=== PATIENT | female | born 2000 | race Hispanic/Latino ===

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

== ENCOUNTER 2023-03-07 23:39 | Emergency (ER) | payer MEDICAID ==
[~2023-03-07] VITALS: Ht 160 cm; Wt 72.6 kg
[~2023-03-07 23:39] MED LIST: AZIT500T2 PO; GUAFACSF5L PO
[2023-03-08 02:20] LABS: BASOPHILS % (AUTO) 0.4 % (0.0-5.0); EOSINOPHILS % (AUTO) 0.2 % (0.0-8.0); HEMATOCRIT 40.2 % (36-48); LYMPHOCYTES % (AUTO) 23.4 % (21.0-51.0); MEAN CORPUSCULAR HEMOGLOBIN 30.3 pg (27.0-33.0); MEAN CORPUSCULAR HGB CONC 33.6 g/dL (32.0-36.0); MEAN CORPUSCULAR VOLUME 90.1 fL (80-100); MONOCYTES % (AUTO) 5.9 % (3.0-13.0); NEUTROPHILS % (AUTO) 69.8 % (40.0-77.0); PLATELET COUNT (AUTO) 290 K/uL (130-400); RED BLOOD CELL COUNT(AUTO) 4.46 MIL/uL (4.00-5.50); RED CELL DISTRIBUTION WIDTH 12.2 % (11.0-15.5); WHITE BLOOD COUNT (AUTO) 10.2 K/uL (4.8-10.8)
[2023-03-08 02:30] LABS: CREATININE 0.7 mg/dL (0.5-1.5); POTASSIUM 4.1 mmol/L (3.5-5.1)
[2023-03-08] MEDS ORDERED: ONDANSETRON 4MG INJ IVP ONE (02:30)
[2023-03-08] MEDS ORDERED: 0.9%NACL 1000ML 1,000 ML IV ONE (02:30)
[2023-03-08 02:32] LABS: HCG,QUALITATIVE URINE NEGATIVE (NEGATIVE)
[2023-03-08 02:34] LABS: ALBUMIN 3.9 g/dL (3.5-5.0); TOTAL PROTEIN, SERUM 7.9 g/dL (6.0-8.3)
[2023-03-08 02:38] LABS: APPEARANCE,URINE CLOUDY (CLEAR); BILIRUBIN,URINE NEGATIVE (NEGATIVE); COLOR,URINE YELLOW (YELLOW); GLUCOSE, URINE (UA) NEGATIVE (NEGATIVE); KETONES,URINE 10 mg/dL (NEGATIVE); NITRATE,URINE NEGATIVE (NEGATIVE); OCCULT BLOOD,URINE NEGATIVE (NEGATIVE); PH,URINE 6.5 (5.0-8.0); PROTEIN,URINE 30 mg/dL (NEGATIVE)
[2023-03-08 02:39] LABS: LEUKOCYTE ESTERASE ,URINE 250 Leu/uL (NEGATIVE)
[2023-03-08 03:03] LABS: BACTERIA,URINE Rare /HPF (None Seen)
[2023-03-08 03:04] LABS: MUCUS,URINE Many LPF (None Seen)
[2023-03-08 03:11] VITALS: BP 119/60
[2023-03-08] MEDS ORDERED: PHEN-847 PO (03:46)
[2023-03-08] MEDS ORDERED: CEFU500T67 PO (03:46)
[2023-03-08] MEDS ORDERED: ONDA-104 PO (03:47)
[2023-03-08] MEDS ORDERED: ACETAMINOPHEN 325 MG TAB PO ONE (04:00)
[2023-03-08] MEDS ORDERED: CEFTRIAXONE 1G VIAL IVPB ONE (04:00)
== END 2023-03-08 04:11 | disposition home or self-care (01) ==
LOC: EDH 23:39
DX: N39.0 Urinary tract infection, site not specified (principal)
CPT/HCPCS: 99284; 80053; 83690; 85025; 87088; 81001; 81025; 36415; 96374; 96361; 96375; J0696; J2405

== ENCOUNTER 2023-03-17 01:01 | Emergency (ER) | payer MEDICAID ==
[~2023-03-17] VITALS: Ht 160 cm; Wt 73.0 kg
[~2023-03-17 01:01] MED LIST changes: +CEFU500T67 PO; +ONDA-104 PO; +PHEN-847 PO
[2023-03-17] MEDS ORDERED: GABAPENTIN 300 MG CAPSULE PO SCH (02:00)
[2023-03-17] MEDS ORDERED: MORPHINE 4 MG SYG IM ONE (02:00)
[2023-03-17] MEDS ORDERED: CYCLOBENZAPRINE HCL 10 MG TABLET PO ONE (02:00)
[2023-03-17 02:31] LABS: APPEARANCE,URINE TURBID (CLEAR); BILIRUBIN,URINE NEGATIVE (NEGATIVE); COLOR,URINE YELLOW (YELLOW); GLUCOSE, URINE (UA) NEGATIVE (NEGATIVE); KETONES,URINE NEGATIVE (NEGATIVE); LEUKOCYTE ESTERASE ,URINE NEGATIVE Leu/uL (NEGATIVE); NITRATE,URINE NEGATIVE (NEGATIVE); OCCULT BLOOD,URINE NEGATIVE (NEGATIVE); PROTEIN,URINE 20 mg/dL (NEGATIVE); UROBILINOGEN,URINE 0.2 mg/dL (0.2-1.0)
[2023-03-17 02:34] LABS: MUCUS,URINE RARE LPF (None Seen); RBC,URINE 0-1 /HPF (0-1); SQUAMOUS EPITHELIAL CELL,UR RARE /HPF (0-2); WBC,URINE 0-1 /HPF (0-1)
[2023-03-17] MEDS ORDERED: IBUP-1493 PO (03:10)
[2023-03-17] MEDS ORDERED: CYCL-309 PO (03:10)
[2023-03-17] MEDS ORDERED: GABA300C PO (03:10)
[2023-03-17 03:23] VITALS: BP 129/78
== END 2023-03-17 03:30 | disposition home or self-care (01) ==
LOC: EDH 01:01
DX: M54.2 Cervicalgia (principal)
CPT/HCPCS: 99285; 72125; 81001; 81025; 96372; J2270

== ENCOUNTER 2023-04-03 18:43 | Emergency (ER) | payer MEDICAID, OTHER ==
[~2023-04-03] VITALS: Ht 160 cm; Wt 73.0 kg
[~2023-04-03 18:43] MED LIST changes: +CYCL-309 PO; +GABA300C PO; +IBUP-1493 PO
[2023-04-03 18:46] VITALS: BP 141/81
== END 2023-04-03 20:28 | disposition left against medical advice (07) ==
LOC: EDH 18:43
DX: R10.9 Unspecified abdominal pain (principal); Z53.21 Procedure and treatment not carried out due to patient leaving prior to being seen by health care provider
CPT/HCPCS: 99281

== ENCOUNTER 2023-04-13 01:07 | Emergency (ER) | payer OTHER ==
[~2023-04-13] VITALS: Ht 160 cm; Wt 73.0 kg
[2023-04-13 01:25] LABS: APPEARANCE,URINE CLEAR (CLEAR); BILIRUBIN,URINE NEGATIVE (NEGATIVE); COLOR,URINE YELLOW (YELLOW); GLUCOSE, URINE (UA) NEGATIVE (NEGATIVE); KETONES,URINE NEGATIVE (NEGATIVE); LEUKOCYTE ESTERASE ,URINE NEGATIVE Leu/uL (NEGATIVE); NITRATE,URINE NEGATIVE (NEGATIVE); OCCULT BLOOD,URINE NEGATIVE (NEGATIVE); PROTEIN,URINE 20 mg/dL (NEGATIVE); UROBILINOGEN,URINE 3 mg/dL (0.2-1.0)
[2023-04-13] MEDS ORDERED: CEFTRIAXONE 500MG VIAL IM STA (02:50)
[2023-04-13 02:53] VITALS: BP 116/60
[2023-04-13] MEDS ORDERED: DOXY-252 PO (02:55)
[2023-04-13] MEDS ORDERED: AZITHROMYCIN 250 MG TABLET PO ONE (03:00)
== END 2023-04-13 03:10 | disposition home or self-care (01) ==
LOC: EDH 01:07
DX: N34.2 Other urethritis (principal); Z79.899 Other long term (current) drug therapy
CPT/HCPCS: 99283; 87797; 87486; 81003; 96372; J0696

== ENCOUNTER 2023-05-04 20:01 | Emergency (ER) | payer MEDICAID, OTHER ==
[~2023-05-04] VITALS: Ht 160 cm; Wt 75.7 kg
[~2023-05-04 20:01] MED LIST changes: +DOXY-252 PO
[2023-05-04] MEDS ORDERED: ONDANSETRON ODT 4MG TAB ONE (23:18)
[2023-05-04] MEDS ORDERED: KETOROLAC 60 MG VIAL (30MG/ML) IM ONE (23:30)
[2023-05-04] MEDS ORDERED: ONDANSETRON 4MG TABLET PO ONE (23:30)
[2023-05-04] MEDS ORDERED: IBUP-2070 PO (23:35)
[2023-05-04] MEDS ORDERED: ACET-66 PO (23:35)
[2023-05-04] MEDS ORDERED: CYCL5TAB PO (23:35)
[2023-05-05 01:01] VITALS: BP 124/72; PULSE 88; RESP 20; O2SAT 99
== END 2023-05-05 01:03 | disposition home or self-care (01) ==
LOC: EDH 20:01
DX: S16.1XXA Strain of muscle, fascia and tendon at neck level, initial encounter (principal); S80.11XA Contusion of right lower leg, initial encounter; S06.0X0A Concussion without loss of consciousness, initial encounter; Z59.7 Insufficient social insurance and welfare support; Z79.1 Long term (current) use of non-steroidal anti-inflammatories (NSAID); Z79.899 Other long term (current) drug therapy; V89.2XXA Person injured in unspecified motor-vehicle accident, traffic, initial encounter; Y93.89 Activity, other specified; Y92.89 Other specified places as the place of occurrence of the external cause; Y99.8 Other external cause status
CPT/HCPCS: 99285; 70450; 81025; 73590; 72125; 96372; J1885

== ENCOUNTER 2023-10-11 05:40 | Emergency (ER) | payer MEDICAID ==
[~2023-10-11] VITALS: Ht 160 cm; Wt 63.5 kg
[~2023-10-11 05:40] MED LIST changes: +ACET-66 PO; +CYCL5TAB PO; +IBUP-2070 PO
[2023-10-11 06:40] LABS: APPEARANCE,URINE CLEAR (CLEAR); BILIRUBIN,URINE NEGATIVE (NEGATIVE); COLOR,URINE LIGHT-YELLOW (YELLOW); GLUCOSE, URINE (UA) NEGATIVE (NEGATIVE); KETONES,URINE NEGATIVE (NEGATIVE); LEUKOCYTE ESTERASE ,URINE 75 Leu/uL (NEGATIVE); NITRATE,URINE NEGATIVE (NEGATIVE); OCCULT BLOOD,URINE NEGATIVE (NEGATIVE); PH,URINE 5.5 (5.0-8.0); PROTEIN,URINE NEGATIVE (NEGATIVE); UROBILINOGEN,URINE 0.2 mg/dL (0.2-1.0)
[2023-10-11 06:43] LABS: HCG,QUALITATIVE URINE NEGATIVE (NEGATIVE)
[2023-10-11 06:50] LABS: ADD UA MICROSCOPIC YES
[2023-10-11 06:52] LABS: MUCUS,URINE RARE LPF (None Seen); SQUAMOUS EPITHELIAL CELL,UR MOD /HPF (0-2)
[2023-10-11] MEDS ORDERED: LIDOCAINE HCL-MPF 2% 5ML VIAL ONE (07:59)
[2023-10-11] MEDS ORDERED: KETOROLAC 60 MG VIAL (30MG/ML) IM ONE ×2 (08:00→08:01)
[2023-10-11] MEDS ORDERED: LIDOCAINE HCL/PF 2% IV FOR VENTRICULAR ARRHYTHMIA IV PRN (08:00)
[2023-10-11] MEDS ORDERED: DIPHENHYDRAMINE HCL 25 MG CAPSULE PO ONE (09:00)
[2023-10-11] MEDS ORDERED: CEFTRIAXONE 1G VIAL IM ONE (09:00)
[2023-10-11] MEDS ORDERED: IBUP-2070 PO (09:03)
[2023-10-11] MEDS ORDERED: DIPH-1242 PO (09:03)
[2023-10-11] MEDS ORDERED: DOXY-469 PO (09:03)
[2023-10-11 09:20] VITALS: BP 118/76; PULSE 78; RESP 18; O2SAT 98
== END 2023-10-11 09:40 | disposition home or self-care (01) ==
LOC: EDH 05:40
DX: N76.2 Acute vulvitis (principal); Z79.1 Long term (current) use of non-steroidal anti-inflammatories (NSAID); Z79.899 Other long term (current) drug therapy
CPT/HCPCS: 99284; 10160; 87088; 87797; 87486; 81001; 81025; 96372 ×2; Q0163; J0696; J1885; J3490

== ENCOUNTER 2023-11-17 20:17 | Emergency (ER) | payer MEDICAID ==
[~2023-11-17] VITALS: Ht 160 cm; Wt 75.3 kg
[~2023-11-17 20:17] MED LIST changes: +DIPH-1242 PO; +DOXY-469 PO
[2023-11-17 21:01] VITALS: BP 105/64; PULSE 75; RESP 16
[2023-11-17 21:23] LABS: APPEARANCE,URINE CLEAR (CLEAR); BILIRUBIN,URINE NEGATIVE (NEGATIVE); COLOR,URINE YELLOW (YELLOW); GLUCOSE, URINE (UA) NEGATIVE (NEGATIVE); KETONES,URINE 60 mg/dL (NEGATIVE); LEUKOCYTE ESTERASE ,URINE NEGATIVE Leu/uL (NEGATIVE); NITRATE,URINE NEGATIVE (NEGATIVE); OCCULT BLOOD,URINE NEGATIVE (NEGATIVE); PH,URINE 5.5 (5.0-8.0); PROTEIN,URINE 10 mg/dL (NEGATIVE); UROBILINOGEN,URINE 0.2 mg/dL (0.2-1.0)
[2023-11-17 21:27] LABS: RAPID GROUP A STREP negative (NEGATIVE)
[2023-11-17] MEDS ORDERED: IBUPROFEN 600 MG TABLET PO ONE (21:30)
[2023-11-17] MEDS ORDERED: PREDNISONE 20 MG TABLET PO ONE (21:30)
[2023-11-17] MEDS ORDERED: FAMOTIDINE 20MG TAB PO ONE (21:30)
[2023-11-17 21:33] LABS: INFLUENZA TYPE A Negative For Type A (NEGATIVE); INFLUENZA TYPE B Negative For Type B (NEGATIVE)
[2023-11-17 21:40] LABS: SARS-CoV-2, RNA, NAAT POSITIVE SARS CoV-2 (NEGATIVE)
[2023-11-17 21:44] LABS: ADD UA MICROSCOPIC YES
[2023-11-17 21:54] LABS: BACTERIA,URINE RARE /HPF (None Seen); MUCUS,URINE FEW LPF (None Seen); RBC,URINE 0-1 /HPF (0-1); SQUAMOUS EPITHELIAL CELL,UR RARE /HPF (0-2)
[2023-11-17 23:02] LABS: BASOPHILS # (AUTO) 0.06 K/uL (0.00-0.20); BASOPHILS % (AUTO) 0.7 % (0.0-5.0); EOSINOPHILS # (AUTO) 0.25 K/uL (0.00-0.70); EOSINOPHILS % (AUTO) 2.8 % (0.0-8.0); HEMATOCRIT 39.3 % (36-48); IMMATURE GRANULOCYTE ABSOLUTE 0.03 K/uL (0-1); LYMPHOCYTES % (AUTO) 21.8 % (21.0-51.0); MEAN CORPUSCULAR HEMOGLOBIN 29.4 pg (27.0-33.0); MEAN CORPUSCULAR HGB CONC 33.3 g/dL (32.0-36.0); MEAN CORPUSCULAR VOLUME 88.3 fL (80-100); MONOCYTES # (AUTO) 0.7 K/uL (0.1-1.0); MONOCYTES % (AUTO) 7.8 % (3.0-13.0); NEUTROPHILS % (AUTO) 66.6 % (40.0-77.0); PLATELET COUNT (AUTO) 298 K/uL (130-400); RED BLOOD CELL COUNT(AUTO) 4.45 MIL/uL (4.00-5.50)
[2023-11-17 23:15] LABS: CREATININE 0.7 mg/dL (0.5-1.5); POTASSIUM 4.1 mmol/L (3.5-5.1)
[2023-11-17 23:20] LABS: ALBUMIN 3.7 g/dL (3.5-5.0); BILIRUBIN,TOTAL 1.4 mg/dL (0.2-1.0); TOTAL PROTEIN, SERUM 7.8 g/dL (6.0-8.3)
[2023-11-17] MEDS ORDERED: PRED20TA3 PO (23:33)
[2023-11-17] MEDS ORDERED: IBUP-2070 PO (23:33)
[2023-11-17] MEDS ORDERED: ONDA4TAB10 PO (23:33)
[2023-11-17] MEDS ORDERED: BROM118S48 PO (23:33)
== END 2023-11-17 23:40 | disposition home or self-care (01) ==
LOC: EDH 20:17
DX: U07.1 COVID-19 (principal); Z79.1 Long term (current) use of non-steroidal anti-inflammatories (NSAID); Z79.899 Other long term (current) drug therapy
CPT/HCPCS: 36415; 80053; 81001; 81025; 85025; 87635; 87804; 87880

== ENCOUNTER 2024-10-30 18:04 | Emergency (ER) | payer BC, OTHER ==
[~2024-10-30] VITALS: Ht 160 cm; Wt 73.9 kg
[~2024-10-30 18:04] MED LIST changes: +BROM118S48 PO; -CYCL5TAB PO; +CYCL5TAB3 PO; -DOXY-469 PO; +DOXY100C61 PO; +ONDA-243 PO; +PRED20TA3 PO
[2024-10-30 19:00] VITALS: TEMP 98.3
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
--- NOTE | 2024-10-30 20:28 | HMCIMG ---
CT HEAD/BRAIN W/O CONTRAST HISTORY: Headaches COMPARISON: None TECHNIQUE: Multiple sequential axial images of the head were obtained from the base of the skull through vertex. Patient was not given contrast through intravenous route. FINDINGS: The ventricles and extraventricular CSF spaces are nondilated for patient's age. There is no midline shift, mass effect or herniation. No acute intracranial bleed is seen. Visualized portion of the paranasal sinuses are grossly within normal limits. IMPRESSION: 1. No acute intracranial bleed is seen. CT was performed with one or more following dose reduction techniques: automated exposure control, adjustment of the mA and kv according to patient's size, or use of a iterative reconstruction technique.
--- NOTE | 2024-10-30 20:29 | HMCIMG ---
CT MAXILLOFACIAL W/O CONTRAST HISTORY: Injury, headaches COMPARISON: None TECHNIQUE: Multiple sequential high-resolution axial images of the paranasal sinuses were obtained. Postprocessing sagittal and coronal reconstruction images were also obtained. Patient was not given contrast through intravenous route. FINDINGS: Dental braces are seen limiting evaluation. Nasal septum is grossly midline. There is no evidence of mucoperiosteal thickening involving the paranasal sinuses. The infundibula are patent bilaterally. No acute displaced fracture is seen. There is no evidence of air-fluid level in the paranasal sinuses. Parapharyngeal fat planes are preserved bilaterally. IMPRESSION: 1. No acute displaced fracture is seen. CT was performed with one or more following dose reduction techniques: automated exposure control, adjustment of the mA and kv according to patient's size, or use of a iterative reconstruction technique.
[2024-10-30] MEDS ORDERED: FIORIT PO (21:26)
[2024-10-30] MEDS: ketOROlac 15MG/ML VIAL (15MG/ML) IV ONE (21:37)
[2024-10-30] MEDS: ondanSETRON 4MG INJ IVP ONE (21:37)
[2024-10-30 22:17] VITALS: BP 102/64; PULSE 78; RESP 18; O2SAT 97
== END 2024-10-30 22:52 | disposition home or self-care (01) ==
LOC: EDH 18:04
DX: S09.90XA Unspecified injury of head, initial encounter (principal); R51.9 Headache, unspecified; Z79.1 Long term (current) use of non-steroidal anti-inflammatories (NSAID); Z79.52 Long term (current) use of systemic steroids; Z79.899 Other long term (current) drug therapy; X58.XXXA Exposure to other specified factors, initial encounter; Y93.89 Activity, other specified; Y92.89 Other specified places as the place of occurrence of the external cause; Y99.8 Other external cause status
CPT/HCPCS: 99285; 70450; 96374; 96375; 81025; 70486; J1885; J2405

== ENCOUNTER 2025-10-02 18:32 | Emergency (ER) | payer BC, OTHER ==
[~2025-10-02] VITALS: Ht 160 cm; Wt 76.2 kg
[~2025-10-02 18:32] MED LIST changes: +DOXY-466 PO; -DOXY100C61 PO; +FIORIT PO; +IBUP-1492 PO; -IBUP-2070 PO
[2025-10-02 18:57] LABS: RAPID GROUP A STREP negative (NEGATIVE)
[2025-10-02 19:00] LABS: SARS-CoV-2, RNA, NAAT NEGATIVE SARS CoV-2 (NEGATIVE)
--- NOTE | 2025-10-02 19:00 | NUR ---
ASSUMED CARE OF PATIENT.
[2025-10-02 19:05] LABS: INFLUENZA TYPE A Negative For Type A (NEGATIVE); INFLUENZA TYPE B Negative For Type B (NEGATIVE)
--- NOTE | 2025-10-02 19:30 | NUR ---
REPORT GIVEN TO Rossi RIDDLE RN FOR CONTINUITY OF PATIENT CARE.
--- NOTE | 2025-10-02 19:47 | ERN ---
ED Note History of Present Illness Stated Complaint: COUGH, CONGESTION, SORE THROAT Chief Complaint: Cough Time Seen by MD: 18:35 Time Seen by Midlevel: 18:38 Dictation: 25-year-old female with no past medical history coming in with complaints of flu-like symptoms along with cough and throat pain. Allergies: Coded Allergies: No Known Allergies (Unverified Allergy, Unknown, 03/18/19) Home Meds Active Scripts Butalb/Acetaminophen/Caffeine (Fioricet) 50 Mg-325 Mg-40 Mg Tab, 1 TAB PO [id number] PRN for pain for 15 Days, #60 TAB 0 Refills Prov:MOHSEN DIETZ MD 10/30/24 Ondansetron (Ondansetron Odt) 4 Mg Tab.rapdis, 4 MG PO Q4H PRN for NAUSEA, #20 TAB Prov:CATALINA COSME G[employer] TESTER 11/17/23 Ibuprofen (Ibuprofen) 600 Mg Tablet, 600 MG PO Q6H PRN for PAIN, #30 TAB Prov:CATALINA COSME [employer]STER 11/17/23 Prednisone (Prednisone) 20 Mg Tablet, 2 TAB PO DAILY for 5 Days, #10 TAB 0 Refills Prov:CATALINA COSME [employer] 11/17/23 D-Methorphan Hb/P-Epd HCl/Bpm (Bromfed Dm Cough Syrup) 2 Mg-30 Mg-10 Mg/5 Ml Syrup, 5 ML PO Q6HPRN PRN for COUGH/COLD SYMPTOMS, #240 ML Prov:CATALINA COSME [employer] 11/17/23 Diphenhydramine HCl (Benadryl) 25 Mg Cap, 25 MG PO TID PRN for SWELLING, #30 CAP 0 Refills Prov:OLMAN HAILE MD 10/11/23 Ibuprofen (Ibuprofen) 600 Mg Tablet, 600 MG PO Q6H PRN for PAIN, #40 TAB 0 Refills Prov:OLMAN HAILE MD 10/11/23 Doxycycline Monohydrate (Doxycycline Monohydrate) 100 Mg Capsule, 1 CAP PO BID for 10 Days, #20 CAP 0 Refills Prov:OLMAN HAILE MD 10/11/23 Ibuprofen (Ibuprofen) 600 Mg Tablet, 600 MG PO Q6H PRN for PAIN, #15 TAB Prov:STEPHENIE BOWIE 05/04/23 Cyclobenzaprine HCl (Cyclobenzaprine HCl) 5 Mg Tablet, 5 MG PO DAILYDINNER for 5 Days, #5 TAB Prov:STEPHENIE BOWIE 05/04/23 Acetaminophen (Acetaminophen) 500 Mg Tablet, 500 MG PO Q4PRN for 5 Days, #15 TAB Prov:STEPHENIE BOWIE 05/04/23 Doxycycline Hyclate (Doxycycline Hyclate) 100 Mg Tablet.dr, 100 MG PO BID, #10 TAB Prov:DUYEN JAMES MD 04/13/23 Ibuprofen (Motrin/Advil) 800 Mg Tab, 800 MG PO TID, #30 TAB Prov:DUYEN JAMES MD 03/17/23 Gabapentin (Neurontin) 300 Mg Capsule, 300 MG PO TID, #60 CAP Prov:DUYEN JAMES MD 03/17/23 Cyclobenzaprine HCl (Cyclobenzaprine HCl) 10 Mg Tablet, 10 MG PO TID, #60 TAB Prov:DUYEN JAMES MD 03/17/23 Ondansetron HCl (Ondansetron HCl) 4 Mg Tablet, 4 MG PO TIDP PRN for VOMITING, #20 TAB Prov:DUYEN JAMES MD 03/08/23 Phenazopyridine HCl (Pyridium) 200 Mg Tab, 200 MG PO TIDPC, #10 TAB TAKE WITH FOOD TO PREVENT STOMACH UPSET. Prov:DUYEN JAMES MD 03/08/23 Cefuroxime Axetil (Cefuroxime) 500 Mg Tablet, 500 MG PO BID, #20 TAB Prov:DUYEN JAMES MD 03/08/23 Guaifenesin/Codeine Phos (Robitussin with Codeine Syrp - Sugar Free) 5 Ml Syrp, 5 ML PO Q4PRN PRN for cough, #150 ML Prov:OPHELIA CALDERÓN MD 05/30/21 Azithromycin (Zithromax Tri-Darius) 500 Mg Tablet, 500 MG PO DAILY, #4 TAB Prov:OPHELIA CALDERNÓ MD 05/30/21 Past Medical History Past Medical History: No Pertinent History Surgical History: None Family History: Negative Social History: Negative, Lives with family History: Not Applicable LMP: Sep 29, 2025 : 0 Review of System Dictation Constitutional: generalized malaise Eyes: Negative for injury, pain,redness, and discharge ENT: Throat pain Cardiovascular: Negative for chest pain, palpitations, and edema Respiratory: complaining of cough Abdomen/GI: Negative for abdominal pain, nausea, vomiting, diarrhea, and con stipation Back: Negative for injury and pain : Negative for injury, bleeding and discharge MS/Extremity: Negative for injury and deformity Skin: Negative for rash, and discoloration Neuro: Negative for headache, weakness, numbness, tingling, and seizure Psych: Negative for suicide ideation, homicidal ideation, and hallucinations Review of Systems: was completed Initial Vital Sign VS Vital Signs Date Time Temp Pulse Resp B/P (MAP) Pulse Ox O2 Delivery O2 Flow Rate FiO2 10/02/25 18:35 99.0 108 16 116/69 100 Room Air 0 10/02/25 19:00 21 Physical Exam Dictation General: awake, alert, NAD Head/Face: Normocephalic, atraumatic Eyes: PERRL, EOMI, vision at baseline ENT: TMs intact, no erythema, no evidence of otitis media or my otitis externa. Erythema noted to the pharynx, no exudate, no effacement, low suspicion for any peritonsillar abscess Neck: Trachea midline, supple, no nuchal rigidity Cardiovascular: RRR, normal S1/S2, No MRGs, no JVD Respiratory: CTAB, no respiratory distress, No rales or wheezes Abdomen: Soft, non-tender, non-distended, normal bowel sounds, no guarding or rebound. Skin: Warm, dry, normal turgor, no rash MS/Extremity: Pulses equal, no cyanosis, neurovascular intact, FROM Neuro: COAx4, GCS 15, strength 5/5, CN 2-12 intact, normal cerebellar exam, normal gait, Psych: Normal behavior, mood, and affect normal Results (Laboratory/Radiology) Laboratory/Radiology Laboratory Tests Test 10/02/25 18:41 Influenza Type A Antigen Negative For Type A Influenza Type B Antigen Negative For Type B SARS-CoV-2, RNA, NAAT NEGATIVE SARS CoV-2 Group A Streptococcus Rapid negative (NEGATIVE) Labs Reviewed?: Yes ED Course ED Course Orders Procedure Category Date Status Time Covid Rna Naat LAB 10/02/25 Complete 18:43 Influenza Type A & B, LAB 10/02/25 Complete Rapid 18:43 Rapid (Group A Strep) LAB 10/02/25 Complete 18:43 Acetaminophen 500mg PHA 10/02/25 Complete Tab (Tylenol 500mg T 19:30 Chest 1vw RAD 10/02/25 Taken 19:48 Current Medications Medications (Trade) Dose Ordered Sig/Juan Route PRN Reason Start Time Stop Time Status Last Admin Dose Admin Acetaminophen (TYLenol 500MG TAB) 1,000 mg ONCE ONCE PO 10/02/25 19:30 10/02/25 19:31 DC 10/02/25 19:23 Vital Signs Date Time Temp Pulse Resp B/P (MAP) Pulse Ox O2 Delivery O2 Flow Rate FiO2 10/02/25 19:00 100.2 85 20 138/92 100 Room Air* 0 21 10/02/25 18:35 99.0 108 16 116/69 100 Room Air 0 Medical Decision Making MDM MDM: 27-year-old patient with no significant past medical history presents with a flu-like symptoms including bilateral ear pain, sore throat, cough, and chest pain and currently on coughing. Patient denies shortness of breath, exertional chest pain, palpitations, syncope or fever or chills. Physical exam and to removals mild posterior pharyngeal erythema without exudates, tonsillar effacement, uvula deviation or muffled voice. Bilateral ears without erythema, bulging or effusion. Lung sounds clear to auscultation bilaterally with no wheezing rales or rhonchi or respiratory distress. Given symptoms, infectious etiologies were evaluated. COVID-19, influenza, rapid strep testing were negative. Chest pain was assessed and felt to be musculoskeletal/pleuritic related to cough and low clinical suspicion for ACS, pulmonary embolism, pneumothorax, pneumonia, epiglottitis, peritonsillar abscess based on age, exam and clinical presentation. Chest x-ray shows no pneumonia interpreted by ER MD. Overall presentation is most consistent with a viral upper respiratory infection/pharyngitis. No indication for antibiotics. Differential diagnosis: Flu, COVID, strep, viral syndrome Rationale: Tests considered and ordered secondary to shared decision making include: Previous outside records reviewed: Old ER visits. Risk of complication and/or morbidity or mortality of patient management: None Medications-Per medication reconciliation Need for hospitalization: Patient does not meet criteria for hospitalization. Need for emergency major/minor surgery: No There are no social concerns with this patient. Prescription drug management Prescriptions will include symptomatic care Patient's prior external medical records from other ER visits were reviewed by me as indicated. Prior testing and results from previous visits were reviewed. Prior tests were taken into account with medical decision making and resource utilization, independent historian/historians were used to obtain complete medical history. I independently interpreted the test that were performed, results were reviewed by me and considered findings on radiology if ordered. Medical management and examination interpretation discussions were had by me with other qualified healthcare professionals as indicated for the patient's care. DX & DISP Disposition: Discharge Departure Impression: Primary Impression: Viral URI with cough Condition: Stable Scripts Benzonatate (Benzonatate) 200 Mg Capsule 1 CAP PO TIDP PRN for cough for 5 Days, #15 CAP 0 Refills Prov: ARIC PRUITT CNP 10/02/25 Additional Instructions: Your swabs were negative for COVID, flu, strep. Your chest x-ray shows no pneumonia. More than likely you have a viral respiratory infection. Take cough medication as prescribed. You can do lozenges. Throat pain and take Tylenol or Motrin [id number] for fever, body aches. Follow up with your primary care provider. If you have any worsening symptoms return to the hospital. Referrals: NADEGE SEAY MD (PCP) Time of Disposition: 20:34 I have reviewed the case, and I agree with, Diagnosis and Plan ARIC PRUITT CNP Oct 02, 2025 19:47
[2025-10-02] MEDS ORDERED: BENZ200C53 PO (20:35)
[2025-10-02 21:08] VITALS: BP 114/74; PULSE 91; RESP 18; TEMP 99.1; O2SAT 98
--- NOTE | 2025-10-02 21:44 | HMCIMG ---
EXAM: CR Chest, 1 View. CLINICAL HISTORY: cough COMPARISON: None provided. FINDINGS: LUNGS: There is no mass, infiltrate, or acute pulmonary abnormality. PLEURAL SPACES: No pleural effusion or pneumothorax. MEDIASTINUM: Cardiac size and mediastinal contours within normal limits. BONES: No acute osseous abnormality. IMPRESSION: No acute cardiopulmonary pathology is evident. /[place]
== END 2025-10-02 21:09 | disposition home or self-care (01) ==
LOC: EDH 18:32
DX: J06.9 Acute upper respiratory infection, unspecified (principal); B97.89 Other viral agents as the cause of diseases classified elsewhere; Z20.822 Contact with and (suspected) exposure to COVID-19; Z79.1 Long term (current) use of non-steroidal anti-inflammatories (NSAID); Z79.52 Long term (current) use of systemic steroids; Z79.899 Other long term (current) drug therapy
CPT/HCPCS: 71045; 87635; 87804; 87880; 99284